=== PATIENT | female | born 1990 | race Caucasian/White ===

== ENCOUNTER 2019-01-09 21:28 | Emergency (ER) | payer MEDICAID ==
[2019-01-09 21:42] VITALS: BP 114/62; PULSE 87; O2SAT 100
[2019-01-09] MEDS ORDERED: Adacel Vial IM ONE ×2 (21:52→21:54)
--- NOTE | 2019-01-09 21:54 | ERPHSYRPT ---
- History of Present Illness Time Seen by Provider: 01/09/19 21:35 Source: patient Exam Limitations: no limitations Patient Subjective Stated Complaint: 2 LACERATIONS TO LOWER LEFT ARM Triage Nursing Assessment: PT STATED THAT SHE TRIPPED OVER DOG AND FELL ON A COUPLE OF KNIVES AT ABOUT 21:00. PT HAS 2 LACERATIONS TO LOWER LT ARM APPROXIMATELY 1 TO 2 INCHES LONG. NO ACTIVE BLEEDING NOTED AT THIS TIME, Physician History: As stated to RN - doing dishes, tripped over dog, cut L forearm with knife ( knives)? Severity: mild Allergies/Adverse Reactions: No Known Drug Allergies Allergy (Unverified 01/09/19 21:54) Hx Tetanus, Diphtheria Vaccination/Date Given: No Hx Influenza Vaccination/Date Given: No Hx Pneumococcal Vaccination/Date Given: No Immunizations Up to Date: No - Review of Systems Constitutional: No Symptoms Neurological: No Symptoms Psychological: No Symptoms All Other Systems: Reviewed and Negative - Past Medical History Neurological History: Seizures ENT History: No Pertinent History Cardiac History: No Pertinent History Respiratory History: No Pertinent History Musculoskeletal History: No Pertinent History GI Medical History: No Pertinent History Psycho-Social History: Anxiety Female Reproductive Disorders: No Pertinent History - Past Surgical History Past Surgical History: Yes Cardiac: No Pertinent History Respiratory: No Pertinent History Gastrointestinal: No Pertinent History Genitourinary: No Pertinent History Musculoskeletal: No Pertinent History Female Surgical History: No Pertinent History - Social History Smoking Status: Current every day smoker Exposure to second hand smoke: Yes Drug Use: none Patient Lives Alone: No - Female History Hx Last Menstrual Period: 01/2019 Hx Now: No - Nursing Vital Signs Nursing Vital Signs: Initial Vital Signs Temperature 98.1 F 01/09/19 21:35 Pulse Rate 87 01/09/19 21:35 Blood Pressure 114/62 01/09/19 21:35 O2 Sat by Pulse Oximetry 100 01/09/19 21:35 Pain Scale Pain Intensity 0 - Physical Exam General Appearance: mild distress (secondary to lacerations left forearm) Eye Exam: PERRL/EOMI, eyes nml inspection Neck Exam: normal inspection Respiratory Exam: airway intact, No respiratory distress Neurologic Exam: alert, oriented x 3, cooperative, normal mood/affect, other ( apparent good interaction between partner and patient; appropriately interactive ) SpO2 Interpretation: normal SpO2: 100 O2 Delivery: Room Air Procedures - Laceration/Wound Repair Left Arm Wound Location: Left, lower arm (proximal forearm) Wound Length (cm): 4 Wound's Depth, Shape: linear (full thickness) Irrigated: Yes Hibiclens Prep: Yes Anesthesia: 1% Lidocaine Volume Anesthetic (ccs): 3 Wound Repaired With: [place] (6) Layer Closure?: No Left Lower Arm Wound Location: Left, lower arm (distal forearm) Wound Length (cm): 4 Wound's Depth, Shape: linear (full thickness) Wound Explored: clean Irrigated: Yes Hibiclens Prep: Yes Anesthesia: local, 1% Lidocaine Volume Anesthetic (ccs): 4 Wound Repaired With: [place] (6) Layer Closure?: No - Course Nursing assessment & vital signs reviewed: Yes Ordered Tests: Medication Summary Discontinued Medications Generic Name Dose Route Start Last Admin Trade Name Freq PRN Reason Stop Dose Admin Diphtheria/Tetanus/Acell Pertussis 0.5 ml 01/09/19 21:52 01/09/19 21:58 Adacel Vial IM 01/09/19 21:53 0.5 ml .ONCE ONE Administration Diphtheria/Tetanus/Acell Pertussis Confirm 01/09/19 21:54 Adacel Vial Administered 01/09/19 21:55 Dose 0.5 ml IM .STK-MED ONE Lidocaine HCl 10 ml 01/09/19 22:01 01/09/19 22:04 Xylocaine 1% Hcl 20 Ml Mdv IJ 01/09/19 22:02 10 ml STAT ONE Administration - Progress Progress: improved Progress Note: post procedure - badage in place on left forearm - front attendant intact; NAD 01/10/19 00:30 - Departure Departure Disposition: Home Clinical Impression: Lacerations of multiple sites of left arm Qualifiers: Encounter type: initial encounter Qualified Code(s): S41.112A - Laceration without foreign body of left upper arm, initial encounter Condition: Fair Critical Care Time: No Referrals: DOCTOR,NO FAMILY [Primary Care Provider] - Instructions: Laceration Repair With Dimas (DC) Additional Instructions: Watch for signs of infection; dimas out 10 days. Prescriptions: Hydrocodone Bit/Acetaminophen [[place] 7.5-325 Tablet] 1 each PO Q6H PRN PRN #14 tablet PRN Reason: Mild To Moderate Pain
[2019-01-09] MEDS ORDERED: XYLOCAINE 1% HCL 20 ML MDV IJ ONE (22:01)
== END 2019-01-09 22:12 | disposition home or self-care (01) ==
LOC: ED 21:28
DX: S51.812A Laceration without foreign body of left forearm, initial encounter (principal); Z23 Encounter for immunization; A35 Other tetanus
CPT/HCPCS: 12002; 90471; 90715; 96372; 99283

== ENCOUNTER 2019-05-11 21:33 | Observation (INO) | payer MEDICAID ==
--- NOTE | 2019-05-11 21:36 | ERPHSYRPT ---
- History of Present Illness Time Seen by Provider: 05/11/19 21:34 Source: patient, EMS Exam Limitations: clinical condition Physician History: This is a 28-year-old female who has a history of suicidal gestures and attempts in the past. She presents with severe anxiety and depression about her living circumstances. She wants to end it all. She states she cannot please everybody. Patient took 10 sleep aid pills that contained 50 mg of diphenhydramine. Patient denies taking any other medications or illicit drugs. She took these pills approximately 1 hour prior to arrival. Patient denies alcohol consumption, she denies narcotic use, she denies benzodiazepine use. Patient states that we might find methamphetamines in her urine drug screen. Patient was brought in by the local police department. Timing/Duration: today Context related to: living circumstances Suicidal thoughts: ingestion, specific plan Associated Symptoms: depressed Previous symptoms: same symptoms as today Allergies/Adverse Reactions: No Known Drug Allergies Allergy (Unverified 01/09/19 21:54) Hx Tetanus, Diphtheria Vaccination/Date Given: No Hx Influenza Vaccination/Date Given: No Hx Pneumococcal Vaccination/Date Given: No - Past Medical History Pertinent Past Medical History: Yes Neurological History: Seizures ENT History: No Pertinent History Cardiac History: No Pertinent History Respiratory History: No Pertinent History Musculoskeletal History: No Pertinent History GI Medical History: No Pertinent History Psycho-Social History: Anxiety Female Reproductive Disorders: No Pertinent History - Past Surgical History Past Surgical History: Yes Cardiac: No Pertinent History Respiratory: No Pertinent History Gastrointestinal: No Pertinent History Genitourinary: No Pertinent History Musculoskeletal: No Pertinent History Female Surgical History: No Pertinent History - Social History Smoking Status: Current every day smoker Exposure to second hand smoke: Yes Drug Use: none Patient Lives Alone: No - Review of Systems Constitutional: No Symptoms Eyes: No Symptoms Ears, Nose, & Throat: No Symptoms Respiratory: No Symptoms Cardiac: No Symptoms Abdominal/Gastrointestinal: No Symptoms Genitourinary Symptoms: No Symptoms Musculoskeletal: No Symptoms Skin: No Symptoms Neurological: No Symptoms Psychological: No Symptoms Endocrine: No Symptoms Hematologic/Lymphatic: No Symptoms Immunological/Allergic: No Symptoms All Other Systems: Reviewed and Negative - Nursing Vital Signs Nursing Vital Signs: Initial Vital Signs Temperature 99.1 F 05/11/19 21:40 Pulse Rate 121 H 05/11/19 21:40 Respiratory Rate 19 05/11/19 21:40 Blood Pressure 137/82 05/11/19 21:40 O2 Sat by Pulse Oximetry 100 05/11/19 21:40 Pain Scale Pain Intensity 3 - Physical Exam General Appearance: mild distress, alert, anxiety Eyes, Ears, Nose, Throat Exam: normal ENT inspection, moist mucous membranes Neck Exam: normal inspection, non-tender, supple, full range of motion Respiratory Exam: normal breath sounds, lungs clear, airway intact, No chest tenderness, No respiratory distress Cardiovascular Exam: regular rate/rhythm, normal heart sounds, normal peripheral pulses Gastrointestinal/Abdominal Exam: soft, normal bowel sounds, No tenderness Extremities Exam: normal inspection, normal range of motion, No evidence of injury Current Suicidality: has suicide plan Neurological Exam: alert, anxious, depressed affect Appearance: appropriate appearance, appropriate insight Behavior/Eye Contact/Speech: alert & cooperative, cooperative, good eye contact Thoughts/Hallucinations: normal thought pattern, no apparent hallucination, No auditory hallucinations, No delusions, No visual hallucinations Skin Exam: normal color, warm, dry SpO2 Interpretation: normal O2 Delivery: Room Air - Course Nursing assessment & vital signs reviewed: Yes EKG Interpreted by Me: RATE (86), Sinus Rhythm, NORMAL AXIS, NORMAL INTERVALS, NORMAL QRS, Other (no comparison ekg) Ordered Tests: Active Orders 24 hr Category Date Time Status EKG-ER Only STAT Care 05/11/19 21:39 Active IV Insertion STAT Care 05/11/19 21:39 Active Psychiatric Consult STAT Cons 05/11/19 21:39 Active ACETAMINOPHEN Stat Lab 05/11/19 22:15 Completed CBC W DIFF Stat Lab 05/11/19 22:15 Completed CMP Stat Lab 05/11/19 22:15 Completed HCG,QUALITATIVE URINE Stat Lab 05/11/19 22:45 Completed SALICYLATE Stat Lab 05/11/19 22:15 Completed UA W/RFX UR CULTURE Stat Lab 05/11/19 22:45 Completed Urine Triage Profile Stat Lab 05/11/19 22:45 Completed Transfer Order Routine Transfer 05/12/19 Ordered Medication Summary Discontinued Medications Generic Name Dose Route Start Last Admin Trade Name Freq PRN Reason Stop Dose Admin Ondansetron HCl 4 mg 05/11/19 21:39 05/11/19 22:00 Zofran Odt 4 Mg PO 05/11/19 21:40 4 mg STAT ONE Administration Ondansetron HCl Confirm 05/11/19 21:59 Zofran Odt 4 Mg Administered 05/11/19 22:00 Dose 4 mg .ROUTE .STK-MED ONE Lab/Rad Data: Laboratory Result Diagrams 05/11/19 22:15 05/11/19 22:15 Laboratory Results 05/11/19 05/11/19 05/11/19 Range/Units 22:45 22:45 22:45 WBC (4.0-10.5) K/mm3 RBC (4.1-5.4) M/mm3 Hgb (12.0-16.0) gm/dl Hct (35-47) % MCV (78-100) fl MCH (26-32) pg MCHC (32-36) g/dl RDW (11.5-14.0) % Plt Count (150-450) K/mm3 MPV (7.5-11.0) fl Gran % (36.0-66.0) % Eos # (Auto) (0-0.5) Absolute Lymphs (auto) (1.0-4.6) Absolute Monos (auto) (0.0-1.3) Lymphocytes % (24.0-44.0) % Monocytes % (0.0-12.0) % Eosinophils % (0.00-5.0) % Basophils % (0.0-0.4) % Absolute Granulocytes (1.4-6.9) Basophils # (0-0.4) Sodium (137-145) mmol/L Potassium (3.5-5.1) mmol/L Chloride (98-107) mmol/L Carbon Dioxide (22-30) mmol/L Anion Gap (5-15) MEQ/L BUN (7-17) mg/dL Creatinine (0.52-1.04) mg/dL Estimated GFR ML/MIN Glucose (74-106) mg/dL Calcium (8.4-10.2) mg/dL Total Bilirubin (0.2-1.3) mg/dL AST (14-36) U/L ALT (0-35) U/L Alkaline Phosphatase (38-126) U/L Serum Total Protein (6.3-8.2) g/dL Albumin (3.5-5.0) g/dL Urine Color YELLOW (YELLOW) Urine Appearance SLIGHTLY CLOUDY (CLEAR) Urine pH 7.0 (5-6) Ur Specific [place] 1.016 (1.005-1.025) Urine Protein NEGATIVE (Negative) Urine Ketones NEGATIVE (NEGATIVE) Urine Blood NEGATIVE (0-5) [place]/ul Urine Nitrite NEGATIVE (NEGATIVE) Urine Bilirubin NEGATIVE (NEGATIVE) Urine Urobilinogen NEGATIVE (0-1) mg/dL Ur Leukocyte Esterase NEGATIVE (NEGATIVE) Urine WBC (Auto) 3-5 (0-5) /HPF Urine RBC (Auto) NONE (0-2) /HPF U Epithel Cells (Auto) RARE (FEW) /HPF Urine Bacteria (Auto) NONE (NEGATIVE) /HPF Urine Mucus (Auto) SLIGHT (NEGATIVE) /HPF Urine Culture Reflexed NO (NO) Urine Glucose NEGATIVE (NEGATIVE) mg/dL Urine HCG, Qual NEGATIVE (Negative) Salicylates (2-20) mg/dL Urine Opiates Level NEGATIVE (NEGATIVE) Ur Methadone NEGATIVE (NEGATIVE) Acetaminophen (10-30) ug/ml Urine Barbiturates NEGATIVE (NEGATIVE) Ur Phencyclidine (PCP) NEGATIVE (NEGATIVE) Urine Amphetamine NEGATIVE (NEGATIVE) U Benzodiazepine Level NEGATIVE (NEGATIVE) Urine Cocaine NEGATIVE (NEGATIVE) Urine Marijuana (THC) NEGATIVE (NEGATIVE) 05/11/19 05/11/19 Range/Units 22:15 22:15 WBC 9.9 (4.0-10.5) K/mm3 RBC 4.08 L (4.1-5.4) M/mm3 Hgb 13.0 (12.0-16.0) gm/dl Hct 39.4 (35-47) % MCV 96.6 (78-100) fl MCH 31.9 (26-32) pg MCHC 33.0 (32-36) g/dl RDW 12.6 (11.5-14.0) % Plt Count 207 (150-450) K/mm3 MPV 10.5 (7.5-11.0) fl Gran % 79.5 H (36.0-66.0) % Eos # (Auto) 0.03 (0-0.5) Absolute Lymphs (auto) 1.50 (1.0-4.6) Absolute Monos (auto) 0.47 (0.0-1.3) Lymphocytes % 15.2 L (24.0-44.0) % Monocytes % 4.8 (0.0-12.0) % Eosinophils % 0.3 (0.00-5.0) % Basophils % 0.2 (0.0-0.4) % Absolute Granulocytes 7.85 H (1.4-6.9) Basophils # 0.02 (0-0.4) Sodium 142 (137-145) mmol/L Potassium 3.7 (3.5-5.1) mmol/L Chloride 109 H (98-107) mmol/L Carbon Dioxide 25 (22-30) mmol/L Anion Gap 12.0 (5-15) MEQ/L BUN 10 (7-17) mg/dL Creatinine 0.61 (0.52-1.04) mg/dL Estimated GFR > 60.0 ML/MIN Glucose 103 (74-106) mg/dL Calcium 9.1 (8.4-10.2) mg/dL Total Bilirubin 0.50 (0.2-1.3) mg/dL AST 19 (14-36) U/L ALT 13 (0-35) U/L Alkaline Phosphatase 66 (38-126) U/L Serum Total Protein 7.0 (6.3-8.2) g/dL Albumin 4.3 (3.5-5.0) g/dL Urine Color (YELLOW) Urine Appearance (CLEAR) Urine pH (5-6) Ur Specific [place] (1.005-1.025) Urine Protein (Negative) Urine Ketones (NEGATIVE) Urine Blood (0-5) [place]/ul Urine Nitrite (NEGATIVE) Urine Bilirubin (NEGATIVE) Urine Urobilinogen (0-1) mg/dL Ur Leukocyte Esterase (NEGATIVE) Urine WBC (Auto) (0-5) /HPF Urine RBC (Auto) (0-2) /HPF U Epithel Cells (Auto) (FEW) /HPF Urine Bacteria (Auto) (NEGATIVE) /HPF Urine Mucus (Auto) (NEGATIVE) /HPF Urine Culture Reflexed (NO) Urine Glucose (NEGATIVE) mg/dL Urine HCG, Qual (Negative) Salicylates < 1.0 L (2-20) mg/dL Urine Opiates Level (NEGATIVE) Ur Methadone (NEGATIVE) Acetaminophen < 10 L (10-30) ug/ml Urine Barbiturates (NEGATIVE) Ur Phencyclidine (PCP) (NEGATIVE) Urine Amphetamine (NEGATIVE) U Benzodiazepine Level (NEGATIVE) Urine Cocaine (NEGATIVE) Urine Marijuana (THC) (NEGATIVE) - Progress Progress: improved, re-examined Progress Note: 05/11/19 22:13 At 2145 I spoke with poison control center (Will). She states that the patient should be observed a minimum of 6 hours. Dates if seizure activity is noted to give the patient Ativan. States that greater than 1 g at 1 setting increases the chance of seizure activity. Patient took a total of 500 mg that wants. To look for widened QRS on EKG. Greater than 110. If this is present to provide the patient with 2 ampoules of bicarbonate. 05/12/19 00:12 This patient was staffed with [facility] mental health. They they received all of the patient's work-up and information. [facility] returned a call and stated that this patient needs to be observed longer in the hospital until 8 AM on May 12, 2019. At that time they will evaluate the patient and determine final disposition. I contacted Dr. Herrera who is the on- call physician for patients with no primary care doctor. He accepts the patient to be placed in observation on a monitored bed/telemetry overnight to then be evaluated by [facility] in the morning 05/12/19 00:19 Counseled pt/family regarding: lab results, diagnosis - Departure Departure Disposition: Observation Clinical Impression: Suicidal behavior with attempted self-injury, Suicidal overdose Condition: Stable Critical Care Time: No Referrals: DOCTOR,NO FAMILY [Primary Care Provider] -
[2019-05-11] MEDS ORDERED: ZOFRAN ODT 4 MG PO ONE (21:39)
[2019-05-11] MEDS ORDERED: ZOFRAN ODT 4 MG ONE (21:59)
[2019-05-11 22:15] LABS: Absolute Neutrophil Ct (ANC) 7.85 (1.4-6.9); BASOPHIL % 0.2 % (0.0-0.4); Basophil (Absolute #) 0.02 (0-0.4); Eosinophil % 0.3 % (0.00-5.0); Eosinophil (Absolute #) 0.03 (0-0.5); Hematocrit 39.4 % (35-47); Lymphocytes % 15.2 % (24.0-44.0); Mean Cell Volume 96.6 fl (78-100); Mean Corpuscular Hemoglobin 31.9 pg (26-32); Mean Platelet Volume 10.5 fl (7.5-11.0); Monocyte (Absolute #) 0.47 (0.0-1.3); Monocytes % 4.8 % (0.0-12.0); Neutrophil % 79.5 % (36.0-66.0); Platelet Count 207 K/mm3 (150-450); Red Blood Count 4.08 M/mm3 (4.1-5.4); Red Cell Distribution Width 12.6 % (11.5-14.0); White Blood Count 9.9 K/mm3 (4.0-10.5)
[2019-05-11 22:26] LABS: ALBUMIN 4.3 g/dL (3.5-5.0); ALKALINE PHOSPHATASE 66 U/L (38-126); BLOOD UREA NITROGEN 10 mg/dL (7-17); CHLORIDE 109 mmol/L (98-107); Calcium 9.1 mg/dL (8.4-10.2); Carbon Dioxide 25 mmol/L (22-30); Creatinine 1 0.61 mg/dL (0.52-1.04); Glucose 103 mg/dL (74-106); Potassium 3.7 mmol/L (3.5-5.1); SGOT/AST 19 U/L (14-36); SGPT/ALT 13 U/L (0-35); SODIUM 142 mmol/L (137-145)
[2019-05-11 22:27] LABS: ACETAMINOPHEN < 10 ug/ml (10-30); SALICYLATE < 1.0 mg/dL (2-20)
[2019-05-11 22:56] LABS: Appearance SLIGHTLY CLOUDY (CLEAR); Bilirubin NEGATIVE (NEGATIVE); Blood NEGATIVE Ery/ul (0-5); Epithelial Cells RARE /HPF (FEW); Glucose NEGATIVE (NEGATIVE); Ketones NEGATIVE (NEGATIVE); Leukocyte Esterase NEGATIVE (NEGATIVE); Mucus SLIGHT /HPF (NEGATIVE); Nitrite NEGATIVE (NEGATIVE); Protein,Urine Dip NEGATIVE (Negative); Specific Gravity 1.016 (1.005-1.025); Urobilinogen NEGATIVE mg/dL (0-1)
[2019-05-11 23:01] LABS: Amphetamine,Urine NEGATIVE (NEGATIVE); Barbiturate,Urine NEGATIVE (NEGATIVE); Benzodiazepine,Urine NEGATIVE (NEGATIVE); Cocaine,Urine NEGATIVE (NEGATIVE); Methadone,Urine NEGATIVE (NEGATIVE); Opiate,Urine NEGATIVE (NEGATIVE); PCP,Urine NEGATIVE (NEGATIVE); THC,Urine NEGATIVE (NEGATIVE)
[2019-05-12] MEDS ORDERED: TYLENOL 325 MG PO PRN (01:37)
[2019-05-12] MEDS ORDERED: ZOFRAN ODT 4 MG PO PRN (01:37)
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
[2019-05-12 09:47] LABS: ALKALINE PHOSPHATASE 61 U/L (38-126); BLOOD UREA NITROGEN 9 mg/dL (7-17); CHLORIDE 109 mmol/L (98-107); Calcium 9.2 mg/dL (8.4-10.2); Carbon Dioxide 27 mmol/L (22-30); Creatinine 1 0.74 mg/dL (0.52-1.04); Glucose 91 mg/dL (74-106); SGOT/AST 18 U/L (14-36); SGPT/ALT 11 U/L (0-35); SODIUM 144 mmol/L (137-145); Total Protein 6.5 g/dL (6.3-8.2)
[2019-05-12] MEDS ORDERED: Nicoderm CQ 21 MG TOP SCH (10:00)
[2019-05-12 10:57] VITALS: BP 120/74; PULSE 88; O2SAT 98
== END 2019-05-12 11:35 | disposition home or self-care (01) ==
LOC: ED 21:33 → ICU 05-12 01:31
PROVIDERS: ADMIT Family Medicine; ATTEND Family Medicine
DX: T45.0X2A Poisoning by antiallergic and antiemetic drugs, intentional self-harm, initial encounter (principal); S41.112A Laceration without foreign body of left upper arm, initial encounter
CPT/HCPCS: 36415; 80053; 80307; 81001; 84703; 85025; 93005; 93268; 99284; G0378; G0481; Q0162; A9270-GY

== ENCOUNTER 2019-12-23 22:18 | Emergency (ER) | payer MEDICAID ==
[2019-12-23 22:50] LABS: Absolute Neutrophil Ct (ANC) 8.98 (1.4-6.9); BASOPHIL % 0.2 % (0.0-0.4); Basophil (Absolute #) 0.02 (0-0.4); Eosinophil % 0.4 % (0.00-5.0); Eosinophil (Absolute #) 0.05 (0-0.5); Hematocrit 39.9 % (35-47); Hemoglobin 13.4 gm/dl (12.0-16.0); Lymphocyte (Absolute #) 2.05 (1.0-4.6); Lymphocytes % 17.6 % (24.0-44.0); Mean Cell Volume 95.7 fl (78-100); Mean Corpuscular Hemoglobin 32.1 pg (26-32); Mean Corpuscular Hgb Concent. 33.6 g/dl (32-36); Mean Platelet Volume 9.7 fl (7.5-11.0); Monocyte (Absolute #) 0.53 (0.0-1.3); Monocytes % 4.6 % (0.0-12.0); Neutrophil % 77.2 % (36.0-66.0); Platelet Count 211 K/mm3 (150-450); Red Blood Count 4.17 M/mm3 (4.1-5.4); Red Cell Distribution Width 12.5 % (11.5-14.0); White Blood Count 11.6 K/mm3 (4.0-10.5)
[2019-12-23 23:00] LABS: ALBUMIN 4.7 g/dL (3.5-5.0); ALKALINE PHOSPHATASE 64 U/L (38-126); ANION GAP 11.7 MEQ/L (5-15); BLOOD UREA NITROGEN 9 mg/dL (7-17); CHLORIDE 108 mmol/L (98-107); Calcium 9.5 mg/dL (8.4-10.2); Carbon Dioxide 24 mmol/L (22-30); Creatinine 1 0.61 mg/dL (0.52-1.04); EST GLOMERULAR FILTRATION RATE > 60.0 ML/MIN; Glucose 129 mg/dL (74-106); Potassium 3.6 mmol/L (3.5-5.1); SGOT/AST 29 U/L (14-36); SGPT/ALT 19 U/L (0-35); SODIUM 139 mmol/L (137-145); Total Protein 7.3 g/dL (6.3-8.2)
[2019-12-23 23:04] LABS: ACETAMINOPHEN < 10 ug/ml (10-30); ETHYL ALCOHOL < 10 mg/dL (0-10); SALICYLATE < 1.0 mg/dL (2-20)
[2019-12-23 23:09] LABS: Barbiturate,Urine NEGATIVE (NEGATIVE); Benzodiazepine,Urine NEGATIVE (NEGATIVE); Cocaine,Urine NEGATIVE (NEGATIVE); Methadone,Urine NEGATIVE (NEGATIVE); Opiate,Urine NEGATIVE (NEGATIVE); PCP,Urine NEGATIVE (NEGATIVE); THC,Urine NEGATIVE (NEGATIVE)
--- NOTE | 2019-12-23 23:10 | ERPHSYRPT ---
- History of Present Illness Source: patient, police Exam Limitations: no limitations Patient Subjective Stated Complaint: "I said some dumb shit. I said I was gonna kill myself. I also cut my arm three times." Triage Nursing Assessment: Pt presented alert et oriented x3 answering questions appropriately. Pt reported cutting herself and having thoughts of suicide following a recent change in employment status. Pt reported being fired two weeks ago. Pt also reported an increased amount of arguing with her fiance. Pt denied plan at this time. Pt reported self-harm today as well as two weeks ago. Pt reported taking "a hit" of marijuana today. Denied any alcohol or other substance use. Pupils 3mm brisk reaction. Symmetrical chest expansion. Pt tearful and cooperative. [place] thought process. Pt denied having an adequate support structure at home. Reported her fiance argues with her a lot. Pt reported seeing Candice who is a counselor at [facility]. Pt reported having an appointment this coming Thursday. Three cigarette lozano and three superficial 1" laceration noted to posterior left forearm. Physician History: 29 yo wf w suicidal ideation. Pt currently denies suicidal intent but does have some hesitation garnica on L dorsal forearm. She recently lost her job and is having problems w her SO. Pt has cut herself in thew past and tried to OD on Benadryl. Timing/Duration: today Severity of Symptoms-Max: moderate Severity of Symptoms-Current: mild Context related to: spouse, work, lost job Suicidal thoughts: gesture Associated Symptoms: depressed, frustrated, injury, No angry, No agitated, No anxiety, No confused, No hostile, No hallucinating, No impaired concentration, No ingestion, No insomnia, No paranoid, No suicidal ideation Previous symptoms: same symptoms as today Allergies/Adverse Reactions: No Known Drug Allergies Allergy (Unverified 12/23/19 22:20) Home Medications: Escitalopram Oxalate [Lexapro] 1 tab PO DAILY 12/23/19 [History] Hx Tetanus, Diphtheria Vaccination/Date Given: No Hx Influenza Vaccination/Date Given: No Hx Pneumococcal Vaccination/Date Given: No Travel Risk - International Travel Have you traveled outside of the country in past 3 weeks: No (N) If Yes, where;: N - Coronavirus Screening Are you exhibiting any of the following symptoms?: No Close contact with a COVID-19 positive Pt in past 14-21 Days: No - Past Medical History Pertinent Past Medical History: Yes Neurological History: Seizures ENT History: No Pertinent History Cardiac History: No Pertinent History Respiratory History: No Pertinent History Musculoskeletal History: No Pertinent History GI Medical History: No Pertinent History Psycho-Social History: Anxiety, Depression Female Reproductive Disorders: No Pertinent History Other Medical History: PTSD - Past Surgical History Past Surgical History: Yes Cardiac: No Pertinent History Respiratory: No Pertinent History Gastrointestinal: No Pertinent History Genitourinary: No Pertinent History Musculoskeletal: No Pertinent History Female Surgical History: Tubal Ligation - Social History Smoking Status: Current every day smoker How long have you smoked: 1 Exposure to second hand smoke: Yes Drug Use: none Patient Lives Alone: No - Female History Hx Now: No - Review of Systems Constitutional: No Symptoms Eyes: No Symptoms Ears, Nose, & Throat: No Symptoms Respiratory: No Symptoms Cardiac: No Symptoms Abdominal/Gastrointestinal: No Symptoms Genitourinary Symptoms: No Symptoms Musculoskeletal: No Symptoms Skin: No Symptoms Neurological: No Symptoms Endocrine: No Symptoms Hematologic/Lymphatic: No Symptoms Immunological/Allergic: No Symptoms - Nursing Vital Signs Nursing Vital Signs: Initial Vital Signs Temperature 98.3 F 12/23/19 22:18 Pulse Rate 99 H 12/23/19 22:18 Respiratory Rate 18 12/23/19 22:18 Blood Pressure 144/74 12/23/19 22:18 O2 Sat by Pulse Oximetry 100 12/23/19 22:18 Pain Scale Pain Intensity 0 - Physical Exam General Appearance: no apparent distress Eyes, Ears, Nose, Throat Exam: normal ENT inspection, TMs normal, pharynx normal, moist mucous membranes Neck Exam: normal inspection, non-tender, supple, full range of motion, No Brudzinski, No Kernig's, No meningismus, No carotid bruit Respiratory Exam: normal breath sounds, lungs clear, airway intact, No respiratory distress Cardiovascular Exam: tachycardia (Mild) Gastrointestinal/Abdominal Exam: soft, normal bowel sounds, No tenderness Extremities Exam: normal inspection, normal range of motion Current Suicidality: denies suicide plan Neurological Exam: alert, calm, baker biscuit II-XII nml as tested, oriented x 3, responds to pain, depressed affect, No agitated, No anxious Appearance: appropriate appearance, appropriate insight, neat, no memory impairment Behavior/Eye Contact/Speech: alert & cooperative, good eye contact, normal speech, No avoids eye contact Thoughts/Hallucinations: normal thought pattern, no apparent hallucination, No auditory hallucinations Skin Exam: normal color, warm, dry SpO2 Interpretation: normal SpO2: 100 O2 Delivery: Room Air - Course Nursing assessment & vital signs reviewed: Yes Ordered Tests: Active Orders 24 hr Category Date Time Status ACETAMINOPHEN Stat Lab 12/23/19 22:45 Completed CBC W DIFF Stat Lab 12/23/19 22:45 Completed CMP Stat Lab 12/23/19 22:45 Completed ETHYL ALCOHOL Stat Lab 12/23/19 22:45 Completed HCG QUALITATIVE,SERUM Stat Lab 12/23/19 22:45 Completed SALICYLATE Stat Lab 12/23/19 22:45 Completed Urine Triage Profile Stat Lab 12/23/19 22:30 Completed Medication Summary Discontinued Medications Generic Name Dose Route Start Last Admin Trade Name Freq PRN Reason Stop Dose Admin Nicotine 21 mg 12/24/19 00:48 12/24/19 00:57 Nicoderm Cq 21 Mg TOP 12/24/19 00:49 21 mg STAT ONE Administration Lab/Rad Data: Laboratory Result Diagrams 12/23/19 22:45 12/23/19 22:45 Laboratory Results 12/23/19 12/23/19 12/23/19 Range/Units 22:45 22:45 22:45 WBC 11.6 H (4.0-10.5) K/mm3 RBC 4.17 (4.1-5.4) M/mm3 Hgb 13.4 (12.0-16.0) gm/dl Hct 39.9 (35-47) % MCV 95.7 (78-100) fl MCH 32.1 H (26-32) pg MCHC 33.6 (32-36) g/dl RDW 12.5 (11.5-14.0) % Plt Count 211 (150-450) K/mm3 MPV 9.7 (7.5-11.0) fl Gran % 77.2 H (36.0-66.0) % Eos # (Auto) 0.05 (0-0.5) Absolute Lymphs (auto) 2.05 (1.0-4.6) Absolute Monos (auto) 0.53 (0.0-1.3) Lymphocytes % 17.6 L (24.0-44.0) % Monocytes % 4.6 (0.0-12.0) % Eosinophils % 0.4 (0.00-5.0) % Basophils % 0.2 (0.0-0.4) % Absolute Granulocytes 8.98 H (1.4-6.9) Basophils # 0.02 (0-0.4) Sodium 139 (137-145) mmol/L Potassium 3.6 (3.5-5.1) mmol/L Chloride 108 H (98-107) mmol/L Carbon Dioxide 24 (22-30) mmol/L Anion Gap 11.7 (5-15) MEQ/L BUN 9 (7-17) mg/dL Creatinine 0.61 (0.52-1.04) mg/dL Estimated GFR > 60.0 ML/MIN Glucose 129 H (74-106) mg/dL Calcium 9.5 (8.4-10.2) mg/dL Total Bilirubin 1.10 (0.2-1.3) mg/dL AST 29 (14-36) U/L ALT 19 (0-35) U/L Alkaline Phosphatase 64 (38-126) U/L Serum Total Protein 7.3 (6.3-8.2) g/dL Albumin 4.7 (3.5-5.0) g/dL Serum , Qual NEGATIVE (Negative) Salicylates < 1.0 L (2-20) mg/dL Urine Opiates Level (NEGATIVE) Ur Methadone (NEGATIVE) Acetaminophen < 10 L (10-30) ug/ml Urine Barbiturates (NEGATIVE) Ur Phencyclidine (PCP) (NEGATIVE) Urine Amphetamine (NEGATIVE) U Benzodiazepine Level (NEGATIVE) Urine Cocaine (NEGATIVE) Urine Marijuana (THC) (NEGATIVE) Ethyl Alcohol < 10 (0-10) mg/dL 12/23/19 Range/Units 22:30 WBC (4.0-10.5) K/mm3 RBC (4.1-5.4) M/mm3 Hgb (12.0-16.0) gm/dl Hct (35-47) % MCV (78-100) fl MCH (26-32) pg MCHC (32-36) g/dl RDW (11.5-14.0) % Plt Count (150-450) K/mm3 MPV (7.5-11.0) fl Gran % (36.0-66.0) % Eos # (Auto) (0-0.5) Absolute Lymphs (auto) (1.0-4.6) Absolute Monos (auto) (0.0-1.3) Lymphocytes % (24.0-44.0) % Monocytes % (0.0-12.0) % Eosinophils % (0.00-5.0) % Basophils % (0.0-0.4) % Absolute Granulocytes (1.4-6.9) Basophils # (0-0.4) Sodium (137-145) mmol/L Potassium (3.5-5.1) mmol/L Chloride (98-107) mmol/L Carbon Dioxide (22-30) mmol/L Anion Gap (5-15) MEQ/L BUN (7-17) mg/dL Creatinine (0.52-1.04) mg/dL Estimated GFR ML/MIN Glucose (74-106) mg/dL Calcium (8.4-10.2) mg/dL Total Bilirubin (0.2-1.3) mg/dL AST (14-36) U/L ALT (0-35) U/L Alkaline Phosphatase (38-126) U/L Serum Total Protein (6.3-8.2) g/dL Albumin (3.5-5.0) g/dL Serum , Qual (Negative) Salicylates (2-20) mg/dL Urine Opiates Level NEGATIVE (NEGATIVE) Ur Methadone NEGATIVE (NEGATIVE) Acetaminophen (10-30) ug/ml Urine Barbiturates NEGATIVE (NEGATIVE) Ur Phencyclidine (PCP) NEGATIVE (NEGATIVE) Urine Amphetamine POSITIVE (NEGATIVE) U Benzodiazepine Level NEGATIVE (NEGATIVE) Urine Cocaine NEGATIVE (NEGATIVE) Urine Marijuana (THC) NEGATIVE (NEGATIVE) Ethyl Alcohol (0-10) mg/dL - Progress Progress: unchanged Progress Note: 12/24/19 02:56 [facility]-ok to discharge/Pt to keep appointment on Thursday12/24/19 02:59 Pt denied suicidal ideation during entire stay Counseled pt/family regarding: lab results, diagnosis, need for follow-up - Departure Departure Disposition: Home Clinical Impression: Attention Seeking Behavior Condition: Stable Critical Care Time: No Referrals: DOCTOR,NO FAMILY [Primary Care Provider] - Instructions: Depression, Adult (DC) Additional Instructions: Keep your appointment w therapist at [facility] on Thursday Return to ER as needed
[2019-12-23 23:27] LABS: Amphetamine,Urine POSITIVE (NEGATIVE)
[2019-12-24] MEDS ORDERED: Nicoderm CQ 21 MG TOP ONE (00:48)
[2019-12-24 03:09] VITALS: BP 122/67; PULSE 90; O2SAT 99
== END 2019-12-24 03:10 | disposition home or self-care (01) ==
LOC: ED 22:18
DX: R46.89 Other symptoms and signs involving appearance and behavior (principal); Z79.899 Other long term (current) drug therapy
CPT/HCPCS: 36415; 80053; 80307; 81025; 85025; 99284; A9270-GY; G0480